=== PATIENT | male | born 1955 | race Hispanic/Latino ===

== ENCOUNTER 2020-12-25 15:30 | Inpatient (IN) | payer MEDICARE ==
[~2020-12-25] VITALS: Ht 157.5 cm; Wt 65.6 kg
[2020-12-25] MEDS ORDERED: 0.9%NACL 1000ML 1,000 ML IV ONE ×2 (16:00→17:00)
[2020-12-25] MEDS ORDERED: MECLIZINE HCL 25 MG TABLET PO ONE (16:00)
[2020-12-25 16:58] LABS: APPEARANCE,URINE Clear (CLEAR); BILIRUBIN,URINE Negative (NEGATIVE); COLOR,URINE Yellow (YELLOW); GLUCOSE, URINE (UA) Negative (NEGATIVE); KETONES,URINE Negative (NEGATIVE); LEUKOCYTE ESTERASE ,URINE Negative (NEGATIVE); NITRATE,URINE Negative (NEGATIVE); OCCULT BLOOD,URINE Negative (NEGATIVE); PROTEIN,URINE Negative (NEGATIVE); UROBILINOGEN,URINE 0.2 mg/dL (0.2-1.0)
[2020-12-25 16:58] LABS: BASOPHILS % (AUTO) 0.5 % (0.0-5.0); EOSINOPHILS % (AUTO) 0.7 % (0.0-8.0); HEMATOCRIT 40.2 % (42-54); LYMPHOCYTES % (AUTO) 18.4 % (21.0-51.0); MEAN CORPUSCULAR HEMOGLOBIN 30.2 pg (27.0-33.0); MEAN CORPUSCULAR HGB CONC 33.8 g/dL (32.0-36.0); MEAN CORPUSCULAR VOLUME 89.3 fL (79-99); MONOCYTES % (AUTO) 6.6 % (3.0-13.0); NEUTROPHILS % (AUTO) 73.4 % (40.0-77.0); PLATELET COUNT (AUTO) 209 K/uL (130-400); RED CELL DISTRIBUTION WIDTH 12.7 % (11.0-15.5); WHITE BLOOD COUNT (AUTO) 10.4 K/uL (4.8-10.8)
[2020-12-25] MEDS ORDERED: ONDANSETRON 4MG INJ IVP ONE (17:00)
[2020-12-25] MEDS ORDERED: MORPHINE 2 MG SYG IVP ONE (17:00)
[2020-12-25] MEDS ORDERED: FAMOTIDINE 20MG VIAL IV ONE ×2 (17:00→17:43)
[2020-12-25 17:05] LABS: CREATININE 0.9 mg/dL (0.5-1.5); POTASSIUM 4.4 mmol/L (3.5-5.1)
[2020-12-25 17:09] LABS: ALBUMIN 3.6 g/dL (3.5-5.0); BILIRUBIN,TOTAL 0.2 mg/dL (0.2-1.0); TOTAL PROTEIN, SERUM 7.1 g/dL (6.0-8.3)
[2020-12-25] MEDS ORDERED: ONDANSETRON 4MG INJ ONE (17:42)
[2020-12-25] MEDS ORDERED: MORPHINE 2 MG SYG ONE (17:43)
[2020-12-25] MEDS ORDERED: ACETAMINOPHEN 325 MG TAB PO PRN (21:00)
[2020-12-25] MEDS ORDERED: MORPHINE 2 MG SYG IVP PRN (21:00)
[2020-12-25] MEDS ORDERED: DEXTROSE 5 %-0.45 % NACL 1,000 ML IV SCH (21:00)
[2020-12-26 07:29] LABS: BASOPHILS % (AUTO) 0.5 % (0.0-5.0); EOSINOPHILS % (AUTO) 1.2 % (0.0-8.0); HEMATOCRIT 39.2 % (42-54); LYMPHOCYTES % (AUTO) 22.6 % (21.0-51.0); MEAN CORPUSCULAR HEMOGLOBIN 29.9 pg (27.0-33.0); MEAN CORPUSCULAR HGB CONC 33.2 g/dL (32.0-36.0); MEAN CORPUSCULAR VOLUME 90.1 fL (79-99); MONOCYTES % (AUTO) 7.6 % (3.0-13.0); NEUTROPHILS % (AUTO) 67.7 % (40.0-77.0); PLATELET COUNT (AUTO) 188 K/uL (130-400); RED BLOOD CELL COUNT(AUTO) 4.35 MIL/uL (4.50-6.20); RED CELL DISTRIBUTION WIDTH 12.9 % (11.0-15.5); WHITE BLOOD COUNT (AUTO) 7.6 K/uL (4.8-10.8)
[2020-12-26 07:57] LABS: CREATININE 0.7 mg/dL (0.5-1.5); MAGNESIUM 1.9 mg/dL (1.80-2.40); POTASSIUM 3.9 mmol/L (3.5-5.1)
[2020-12-26 08:10] VITALS: BP 124/69
[2020-12-26 08:12] LABS: HEMOGLOBIN A1C 7.9 % (4.0-6.0)
[2020-12-26] MEDS ORDERED: MORPHINE 2 MG SYG IVP PRN ×2 (08:30)
[2020-12-26] MEDS ORDERED: ONDANSETRON ODT 4MG TAB PO PRN (08:30)
[2020-12-26 11:22] VITALS: BP 119/67
[2020-12-26] MEDS: DEXTROSE 5 % AND 0.9 % NACL 1,000 ML IV SCH ×2 (12:00→22:09)
[2020-12-26] MEDS ORDERED: ZOSYN 3.375GM+NS 50ML 3.38 GM in 0.9%NACL 50ML 50 ML IV SCH (13:30)
[2020-12-26] MEDS: ZOSYN 3.375GM +NS 50ML IV SCH ×2 (13:42→20:15)
[2020-12-26] MEDS: 0.9%NACL 50ML 50 ML IV SCH ×2 (13:42→20:15)
[2020-12-26 16:16] VITALS: BP 120/65
[2020-12-26 21:16] VITALS: BP 118/55
[2020-12-27 01:52] VITALS: BP 154/66
[2020-12-27] MEDS: 0.9%NACL 50ML 50 ML IV SCH (04:34)
[2020-12-27] MEDS: ZOSYN 3.375GM +NS 50ML IV SCH (04:34)
[2020-12-27 04:49] LABS: HEMATOCRIT 39.2 % (42-54); MEAN CORPUSCULAR HEMOGLOBIN 29.9 pg (27.0-33.0); MEAN CORPUSCULAR HGB CONC 32.9 g/dL (32.0-36.0); RED BLOOD CELL COUNT(AUTO) 4.31 MIL/uL (4.50-6.20); RED CELL DISTRIBUTION WIDTH 12.7 % (11.0-15.5); WHITE BLOOD COUNT (AUTO) 8.2 K/uL (4.8-10.8)
[2020-12-27 05:05] LABS: CREATININE 0.7 mg/dL (0.5-1.5); MAGNESIUM 1.9 mg/dL (1.80-2.40); POTASSIUM 3.5 mmol/L (3.5-5.1)
[2020-12-27] MEDS ORDERED: LINA5TAB PO (08:03)
[2020-12-27] MEDS ORDERED: ASPI-1197 PO (08:03)
[2020-12-27] MEDS ORDERED: PIOG30TA70 PO (08:03)
[2020-12-27] MEDS ORDERED: ENAL20TA18 PO (08:03)
[2020-12-27] MEDS ORDERED: TERB250T89 PO (08:03)
[2020-12-27] MEDS ORDERED: METF-446 PO (08:03)
[2020-12-27] MEDS ORDERED: ATOR40TA69 PO (08:03)
[2020-12-27 09:43] VITALS: BP 149/67
[2020-12-27 11:49] VITALS: BP 128/66
== END 2020-12-27 15:00 | disposition home or self-care (01) | DRG 392 ==
LOC: EDH 15:30 → EDHIP 19:00 → 3CH 12-26 02:59
PROVIDERS: ADMIT Internal Medicine Infectious Disease; ATTEND Internal Medicine Infectious Disease
DX: K57.92 Diverticulitis of intestine, part unspecified, without perforation or abscess without bleeding (principal); I10 Essential (primary) hypertension; E11.9 Type 2 diabetes mellitus without complications
CPT/HCPCS: 36415; 70450; 73620; 74176; 80048; 80053; 81003; 82948; 83036; 83690; 83735; 85025; 85027; G0378; J2405; J2543; J3490; J7042

== ENCOUNTER 2021-01-20 02:32 | Emergency (ER) | payer MEDICARE ==
[~2021-01-20] VITALS: Ht 162.6 cm; Wt 61.7 kg
[~2021-01-20 02:32] MED LIST: ASPI-1197 PO; ATOR40TA69 PO; ENAL20TA18 PO; LINA5TAB PO; METF-446 PO; PIOG30TA70 PO; TERB250T89 PO
[2021-01-20 03:00] LABS: BASOPHILS % (AUTO) 0.4 % (0.0-5.0); HEMATOCRIT 38.1 % (42-54); LYMPHOCYTES % (AUTO) 16.2 % (21.0-51.0); MEAN CORPUSCULAR HEMOGLOBIN 30.7 pg (27.0-33.0); MEAN CORPUSCULAR HGB CONC 34.9 g/dL (32.0-36.0); MONOCYTES % (AUTO) 7.3 % (3.0-13.0); NEUTROPHILS % (AUTO) 74.7 % (40.0-77.0); PLATELET COUNT (AUTO) 209 K/uL (130-400); RED BLOOD CELL COUNT(AUTO) 4.33 MIL/uL (4.50-6.20); RED CELL DISTRIBUTION WIDTH 12.9 % (11.0-15.5); WHITE BLOOD COUNT (AUTO) 10.6 K/uL (4.8-10.8)
[2021-01-20] MEDS ORDERED: 0.9%NACL 1000ML 1,000 ML IV ONE (03:00)
[2021-01-20 03:10] LABS: CREATININE 0.8 mg/dL (0.5-1.5); POTASSIUM 3.9 mmol/L (3.5-5.1)
[2021-01-20 03:14] LABS: ALBUMIN 3.8 g/dL (3.5-5.0); BILIRUBIN,TOTAL 0.4 mg/dL (0.2-1.0); MAGNESIUM 2.3 mg/dL (1.80-2.40); TOTAL PROTEIN, SERUM 7.4 g/dL (6.0-8.3)
[2021-01-20 04:46] VITALS: BP 109/66
== END 2021-01-20 05:28 | disposition home or self-care (01) ==
LOC: EDH 02:32
DX: E86.1 Hypovolemia (principal); R19.7 Diarrhea, unspecified; E11.9 Type 2 diabetes mellitus without complications; Z79.82 Long term (current) use of aspirin; Z79.84 Long term (current) use of oral hypoglycemic drugs; Z79.899 Other long term (current) drug therapy
CPT/HCPCS: 36415; 80053; 83735; 85025; 96360; 99283; J7030

== ENCOUNTER 2022-03-03 08:45 | Emergency (ER) | payer MEDICARE ==
[~2022-03-03] VITALS: Ht 160 cm; Wt 59.0 kg
[2022-03-03 09:29] LABS: BASOPHILS % (AUTO) 0.4 % (0.0-5.0); EOSINOPHILS % (AUTO) 0.4 % (0.0-8.0); LYMPHOCYTES % (AUTO) 11.6 % (21.0-51.0); MEAN CORPUSCULAR HGB CONC 32.9 g/dL (32.0-36.0); MEAN CORPUSCULAR VOLUME 94.2 fL (79-99); MONOCYTES % (AUTO) 8.1 % (3.0-13.0); PLATELET COUNT (AUTO) 182 K/uL (130-400); RED BLOOD CELL COUNT(AUTO) 3.61 MIL/uL (4.50-6.20); RED CELL DISTRIBUTION WIDTH 13.2 % (11.0-15.5); WHITE BLOOD COUNT (AUTO) 12.1 K/uL (4.8-10.8)
[2022-03-03] MEDS ORDERED: PHENAZOPYRIDINE HCL 200 MG TABLET PO ONE (09:30)
[2022-03-03 09:40] LABS: CREATININE 0.9 mg/dL (0.5-1.5); POTASSIUM 4.5 mmol/L (3.5-5.1)
[2022-03-03 09:48] LABS: ALBUMIN 3.5 g/dL (3.5-5.0); TOTAL PROTEIN, SERUM 7.5 g/dL (6.0-8.3)
[2022-03-03 10:38] LABS: APPEARANCE,URINE CLEAR (CLEAR); BILIRUBIN,URINE NEGATIVE (NEGATIVE); COLOR,URINE YELLOW (YELLOW); GLUCOSE, URINE (UA) >=1000 mg/dL (NEGATIVE); KETONES,URINE NEGATIVE (NEGATIVE); LEUKOCYTE ESTERASE ,URINE 25 Leu/uL (NEGATIVE); NITRATE,URINE NEGATIVE (NEGATIVE); OCCULT BLOOD,URINE NEGATIVE (NEGATIVE); PROTEIN,URINE 20 mg/dL (NEGATIVE); UROBILINOGEN,URINE 0.2 mg/dL (0.2-1.0)
[2022-03-03 10:42] LABS: BACTERIA,URINE RARE /HPF (None Seen); MUCUS,URINE RARE LPF (None Seen); SQUAMOUS EPITHELIAL CELL,UR RARE /HPF (0-2)
[2022-03-03] MEDS ORDERED: LEVO750T68 PO (12:18)
[2022-03-03] MEDS ORDERED: LEVOFLOXACIN 500 MG/D5W 100 ML 100 ML IV SCH (12:30)
[2022-03-03 13:16] VITALS: BP 109/77
== END 2022-03-03 13:26 | disposition home or self-care (01) ==
LOC: EDH 08:45
DX: N39.0 Urinary tract infection, site not specified (principal); E11.9 Type 2 diabetes mellitus without complications; E78.00 Pure hypercholesterolemia, unspecified; I10 Essential (primary) hypertension; K21.9 Gastro-esophageal reflux disease without esophagitis; Z79.82 Long term (current) use of aspirin; Z79.84 Long term (current) use of oral hypoglycemic drugs; Z79.899 Other long term (current) drug therapy
CPT/HCPCS: 99284; 96365; 80053; 85025; 87088; 81001; 36415; J1956